=== PATIENT | male | born 1970 | race Caucasian/White ===

== ENCOUNTER 2022-04-07 12:10 | Emergency (ER) | payer OTHER, SELFPAY ==
--- NOTE | ~2022-04-07 | XR_ITS ---
EXAMINATION: XR CHEST CLINICAL INFORMATION: Left-sided chest pain COMPARISON: None TECHNIQUE: Frontal view of the chest was obtained. FINDINGS: No significant abnormality is noted involving the heart, lungs, mediastinum, bony thorax or soft tissues. XR/XR chest 1V IMPRESSION: Unremarkable examination.
--- NOTE | ~2022-04-07 | CT_ITS ---
EXAMINATION: CT HEAD WITHOUT CONTRAST CLINICAL INFORMATION: Paresthesias. COMPARISON: None TECHNIQUE: Contiguous axial imaging was performed from the skull base to vertex without intravenous administration of contrast. Additional 2-D coronal and sagittal reformatted images are generated on the CT workstation and uploaded to PACS. This CT examination was performed using dose optimization techniques as appropriate, variously including the following: *Automated exposure control *Adjustment of mA and/or kV according to patient size (this includes techniques or standardized protocols for targeted exams where dose is matched to indication/reason for exam; i.e. extremities or head) *Use of iterative reconstruction technique DLP: 605 mGy-cm FINDINGS: There is no intracranial hemorrhage, hematoma, or extra-axial fluid collection. The ventricles are normal in size. There is no hydrocephalus, edema, or mass effect. The ryder-white matter differentiation appears well preserved . There is no visible acute territorial infarct or mass lesion. The calvarium appears intact. There is no pneumocephalus or orbital emphysema. The visualized sinuses and middle ears and mastoid air cells show no significant mucosal thickening. There are no air-fluid levels. CT/CT head/brain wo IV con IMPRESSION: Unremarkable noncontrast CT head.
[2022-04-07 12:11] VITALS: BP 133/94; PULSE 80; RESP 20; TEMP 36.6; O2SAT 98; BMI 25.8
--- NOTE | 2022-04-07 12:12 | ED_ITS ---
HPI - Chest Pain General Chief Complaint: Chest Pain <CHICO Garrett Last Filed: 04/07/22 12:15> Stated Complaint: Chest pain/L arm tingling <CHICO Garrett Last Filed: 04/07/22 12:15> Time Seen by Provider: 04/07/22 12:42 <CHICO Garrett Last Filed: 04/07/22 12:15> Source: patient <CHICO Martinez Last Filed: 04/07/22 15:54> Mode of arrival: ambulatory <CHICO Martinez Last Filed: 04/07/22 15:54> Limitations: no limitations <CHICO Martinez Last Filed: 04/07/22 15:54> History of Present Illness HPI narrative: Patient is a 51 year old assigned male at with no reported medical history presenting to the emergency department today with intermittent chest pain and intermittent numbness and tingling to both arms and legs. Patient states that over the last 2 days he has had intermittent chest pain, numbness and tingling intermittently in the upper and lower extremities, and intermittent brain fog. Patient denies any dizziness, lightheadedness, abdominal pain, nausea, vomiting, fever, chills, blurry vision, double vision, loss of vision, difficulty breathing, shortness of breath, back pain, night sweats, pain with urination, increased urinary frequency, increased urinary urgency, blood in his urine or stool, syncope or a near syncopal episode, recent trauma or falls, bowel incontinence, bladder incontinence, bowel retention, bladder retention, or any other complaints at this time. <CHICO Martinez Last Filed: 04/07/22 15:54> Pain radiation: none <CHICO Martinez Last Filed: 04/07/22 15:54> Severity: mild <CHICO Martinez Last Filed: 04/07/22 15:54> Pain scale (0-10): 2 <CHICO Martinez Last Filed: 04/07/22 15:54> Quality: aching <CHICO Martinez Last Filed: 04/07/22 15:54> Relieving factors: nothing <CHICO Martinez Last Filed: 04/07/22 15:54> Exacerbating factors: nothing <CHICO Martinez - Last Filed: 04/07/22 15:54> Treatment prior to arrival: none <CHICO Martinez Last Filed: 04/07/22 15:54> Related Data Allergies/Adverse Reactions: Allergies Allergy/AdvReac Type Severity Reaction Status Date / Time No Known Allergies Allergy Verified 04/07/22 12:16 <CHICO Garrett - Last Filed: 04/07/22 12:15> Review of Systems Constitutional: Constitutional: Reports no additional constitutional com plaints, Denies chills, Denies fever(s) and Denies night sweats <CHICO Martinez Last Filed: 04/07/22 15:54> Eyes: Eyes: Reports no additional eye complaints, Denies blurry vision, Denies change in vision, Denies diplopia, Denies eye discharge, Denies loss of vision and Denies eye pain <CHICO Martinez Last Filed: 04/07/22 15:54> ENT: Denies dizziness <CHICO Martinez Last Filed: 04/07/22 15:54> Cardiovascular: Cardiovascular: Reports no additional cardiovascular complaints, Reports chest pain (intermittently), Denies lightheadedness, Denies Loss of Consciousness and Denies dyspnea <CHICO Martinez Last Filed: 04/07/22 15:54> Respiratory: Respiratory: Reports no additional respiratory complaints and Denies dyspnea <CHICO Martinez Last Filed: 04/07/22 15:54> Gastrointestinal: Gastrointestinal: Reports no additional gastrointestinal complaints, Denies abdominal pain, Denies melena, Denies hematochezia, Denies change in bowel habits and Denies change in stool character <CHICO Martinez Last Filed: 04/07/22 15:54> Genitourinary: Genitourinary: Reports no additional male genitourinary complaints, Denies hematuria, Denies oliguria, Denies difficulty urinating, Denies dysuria, Denies urinary frequency, Denies urinary hesitancy, Denies urinary incontinence and Denies urinary urgency <CHICO Martinez Last Filed: 04/07/22 15:54> Musculoskeletal: Musculoskeletal: Reports no additional musculoskeletal complaints, Reports numbness and Reports tingling <CHICO Martinez - Last Filed: 04/07/22 15:54> Neurologic: Denies dizziness, Denies loss of vision, Reports numbness and Reports tingling <CHICO Martinez - Last Filed: 04/07/22 15:54> Comments: intermittent numbness and tingling to bilateral upper and lower extremities <CHCIO Martinez - Last Filed: 04/07/22 15:54> Psychiatric: Psychiatric: Reports no additional psychiatric complaints <CHICO Martinez - Last Filed: 04/07/22 15:54> Endocrine: Endocrine: Reports no additional endocrine complaints <CHICO Martinez - Last Filed: 04/07/22 15:54> Hematologic/Lymphatic: Hematologic/Lymphatic: Reports no additional hematologic/lymphatic complaints <CHICO Martinez - Last Filed: 04/07/22 15:54> Allergic/Immunologic: Allergic/Immunologic: Reports no additional allergic/immunologic complaints <CHICO Martinez - Last Filed: 04/07/22 15:54> [facility] Past Medical History Attestation statement: The following information was validated with the patient. <CHICO Martinez - Last Filed: 04/07/22 15:54> Source: old records reviewed and nursing notes reviewed <CHICO Martinez - Last Filed: 04/07/22 15:54> Social History Social History: Social History Smoked in Last 30 Days: No Substance Use Type: Marijuana Advance Directives: No Advance Directives Information Provided: Yes <CHICO Garrett - Last Filed: 04/07/22 12:15> Physical Exam Vital Signs: Vital Signs: Last Vital Signs Temp 98.2 F 04/07/22 15:14 Pulse 70 04/07/22 15:14 Resp 18 04/07/22 15:14 BP 136/87 04/07/22 15:14 Pulse Ox 96 04/07/22 15:14 O2 Del Method 04/07/22 15:14 BMI result Body Mass Index 25.8 <CHICO Garrett - Last Filed: 04/07/22 12:15> Vital Signs: Last Vital Signs Temp 98.2 F 04/07/22 15:14 Pulse 70 04/07/22 15:14 Resp 18 04/07/22 15:14 BP 136/87 04/07/22 15:14 Pulse Ox 96 04/07/22 15:14 O2 Del Method 04/07/22 15:14 BMI result Body Mass Index 25.8 <CHICO Martinez - Last Filed: 04/07/22 15:54> Const: General: cooperative, no acute distress, alert and awake <CHICO Martinez - Last Filed: 04/07/22 15:54> Nutritional Appearance: well nourished <Jaimee Kuo PA - Last Filed: 04/07/22 15:54> Orientation/consciousness: patient oriented x3 <CHICO Martinez - Last Filed: 04/07/22 15:54> Limitations: no limitations <CHICO Martinez - Last Filed: 04/07/22 15:54> HEENT: Head: Yes normal to inspection and Yes atraumatic <CHICO Martinez - Last Filed: 04/07/22 15:54> Ears: hearing grossly normal bilaterally and external ears normal <Jaimee Kuo PA - Last Filed: 04/07/22 15:54> General nose exam: Normal external nose present, no nasal discharge noted and no epistaxis <CHICO Martinez - Last Filed: 04/07/22 15:54> Face and sinus: Yes normal facial exam, No abrasion and No laceration <CHICO Martinez - Last Filed: 04/07/22 15:54> Mouth: Normal oral and palatal mucosa present, no drooling and no muffled voice <Jaimee Kuo PA - Last Filed: 04/07/22 15:54> Eyes: General: appearance normal, both eyes and all related structures <CHICO Martinez - Last Filed: 04/07/22 15:54> Periorbital: periorbital findings normal <CHICO Martinez - Last Filed: 04/07/22 15:54> Eyelids: Yes eyelids normal <CHICO Martinez - Last Filed: 04/07/22 15:54> Conjunctivae: conjunctivae normal <CHICO Martinez - Last Filed: 04/07/22 15:54> Pupils: Equal, round and reactive pupils present <Jaimee Kuo PA - Last Filed: 04/07/22 15:54> EOM: EOMs intact bilaterally <Jaimee Kuo PA - Last Filed: 04/07/22 15:54> Neck: Neck: Yes normal visual inspection, Yes full ROM and Yes no lymphadenopathy <Jaimee Kuo PA - Last Filed: 04/07/22 15:54> Chest: Chest palpation & inspection: normal inspection of the chest <Jaimee Kuo PA - Last Filed: 04/07/22 15:54> Resp: Effort & Inspection: normal respiratory effort and able to speak in complete sentences <Jaimee Kuo PA - Last Filed: 04/07/22 15:54> Auscultation: clear to auscultation bilaterally <Jaimee Kuo PA - Last Filed: 04/07/22 15:54> Cardio: Rate: regular rate <Jaimee Kuo PA - Last Filed: 04/07/22 15:54> Rhythm: regular rhythm <Jaimee Kuo PA - Last Filed: 04/07/22 15:54> GI: Inspection: Yes normal to inspection <Jaimee Kuo AK - Last Filed: 04/07/22 15:54> Palpation (GI): Soft to palpation, not firm, nontender, no guarding and not rigid <Jaimee Kuo PA - Last Filed: 04/07/22 15:54> Neuro: General: patient oriented x3 and moves all extremities <Jaimee Yanezmichelle PA - Last Filed: 04/07/22 15:54> Cranial nerves: Yes Equal, round and reactive pupils present <Jaimee Kuo PA - Last Filed: 04/07/22 15:54> Cognition (Neuro): normal cognition <Jaimee Yanezmichelle PA - Last Filed: 04/07/22 15:54> Motor exam (neuro): 5/5 motor strength present throughout <Jaimee Kuo PA - Last Filed: 04/07/22 15:54> Sensory Exam: Normal double simultaneous stimulation for sensation <Jaimee Yanezmichelle PA - Last Filed: 04/07/22 15:54> Coordination: onheld-jk-ksts test normal <Jaimee YanezCHICO martinez - Last Filed: 04/07/22 15:54> Extrem: General: Yes normal to inspection, Yes full ROM and Yes capillary refill normal <Jaimeebharat YanezCHICO martinez - Last Filed: 04/07/22 15:54> Psych: Appearance: grossly normal <Jaimee YanezCHICO martinez - Last Filed: 04/07/22 15:54> Mental Status: mental status grossly normal <Jaimee KuoCHICO martinez - Last Filed: 04/07/22 15:54> Affect: normal affect <Jaimeebharat YanezCHICO martinez - Last Filed: 04/07/22 15:54> Attitude: cooperative <Jaimee KuoCHICO martinez - Last Filed: 04/07/22 15:54> Thought process: Normal thought process present <CHICO Martinez - Last Filed: 04/07/22 15:54> Thought content: Normal thought content present <Jaimee KuoCHICO martinez - Last Filed: 04/07/22 15:54> Insight: Good insight present (Psych) <CHICO Martinez - Last Filed: 04/07/22 15:54> Course Course Course Narrative: RME - 51 yo male presenting with intermittent left sided chest pains that started a few days ago. Sometimes radiates further into left chest or down the left arm as pain or as tingling sensation. At times down the left leg as well. Some SOB associated along with brain fog, trouble concentrating. Family hx cardiac disease but he has no other risk factors. VSS and he appears well in triage. Labs, CXR, EKG ordered. <CHICO Garrett - Last Filed: 04/07/22 12:15> Medical Decision Making Medical Decision Making MDM Narrative: Patient is a 51 year old assigned male at with no reported medical history presenting to the emergency department today with intermittent chest pain and diffuse paresthesias. Patient's physical exam was unremarkable. Patient's blood work was unremarkable. Patient's EKG was unremarkable. Patient's chest x-ray and head CT showed no acute process. I explained my physical exam findings as well as all test results to the patient. I answered all questions asked by the patient. I stressed the importance of the patient taking his medication as prescribed. I stressed the importance of the patient following up with his primary care provider, a provider engagement executive, and a neurologist. I stressed the importance of the patient returning to the emergency department immediately if his symptoms were to worsen or if he were to develop any dizziness, shortness of breath, difficulty breathing, chest pain, blurry vision, loss of vision, nausea, vomiting, abdominal pain, fever, chills, back pain, or any other complaints. Patient verbalized agreement and understanding with this treatment plan and discharge. <CHICO Martinez - Last Filed: 04/07/22 15:54> Differential Diagnosis Differential Diagnoses: The differential diagnosis associated with the presentation includes <CHICO Martinez - Last Filed: 04/07/22 15:54> Chest pain, paresthesias <CHICO Martinez - Last Filed: 04/07/22 15:54> Lab Data MDM Lab Attestation statement: I reviewed the patient's lab results. <CHICO Martinez - Last Filed: 04/07/22 15:54> Result Diagrams: 04/07/22 12:28 04/07/22 12:28 <CHICO Garrett - Last Filed: 04/07/22 12:15> Labs: Lab Results 04/07/22 04/07/22 04/07/22 Range/Units 12:28 12:28 12:28 WBC 6.3 (4.8-10.8) X10*3/uL RBC 5.13 (4.60-5.80) X10*6/uL Hgb 15.8 (14.0-18.0) g/dl Hct 46.9 (42.0-52.0) % MCV 91.4 (80.0-98.0) fL MCH 30.8 (27.0-33.0) pg MCHC 33.7 (31.0-36.0) g/dl RDW 12.3 (11.0-16.0) % Plt Count 312 (160-400) X10*3/uL MPV 9.2 L (9.4-12.4) fL Immature Gran % (Auto) 0.2 (0.0-0.4) % Neut % (Auto) 60.8 (45-73) % Lymph % (Auto) 28.8 (20-40) % [place] % (Auto) 7.2 (2-11) % Eos % (Auto) 1.6 (0-4) % Baso % (Auto) 1.4 (0-2) % Lymph # (Auto) 1.8 (1.2-4.9) X10*3/uL [place] # (Auto) 0.5 (0.1-1.2) X10*3/uL Eos # (Auto) 0.1 (0.0-0.4) X10*3/uL Baso # (Auto) 0.1 (0.0-0.2) X10*3/uL Abs Immat Gran (auto) 0.01 (0.00-0.03) X10*3/uL Absolute Neuts (auto) 3.8 (2.0-8.3) x10*3/uL Absolute Nucleated RBC 0.000 (0.0-0.012) X10*3/uL Nucleated RBC % (auto) 0.0 (0.0-0.2) /100WBC PT 11.2 (10.0-13.1) SEC INR 1.0 (0.9-1.1) APTT 31.5 (26.0-36.4) SEC Sodium 138 (135-145) mmol/L Potassium 4.5 (3.3-5.1) mmol/L Chloride 102 (96-108) mmol/L Carbon Dioxide 29 (22-29) mmol/L Anion Gap 12 (12-20) BUN 18 H (9-16) mg/dL Creatinine 1.29 (0.5-1.4) mg/dL Estim Creat Clear Calc 68.5 Estimated GFR 59 Random Glucose 98 (60-115) mg/dL Calcium 9.8 (8.4-10.2) mg/dL Magnesium 2.1 (1.6-2.6) mg/dL Total Bilirubin 0.5 (0.0-1.0) mg/dL Direct Bilirubin < 0.2 (0.0-0.5) mg/dL AST 20 (5-37) U/L ALT 14 (0-40) U/L Alkaline Phosphatase 71 (39-117) U/L Troponin I High Sens (<3.5-35.0) ng/L Total Protein 7.3 (6.5-8.0) g/dL Albumin 4.4 (3.5-5.0) g/dL 04/07/22 Range/Units 12:28 WBC (4.8-10.8) X10*3/uL RBC (4.60-5.80) X10*6/uL Hgb (14.0-18.0) g/dl Hct (42.0-52.0) % MCV (80.0-98.0) fL MCH (27.0-33.0) pg MCHC (31.0-36.0) g/dl RDW (11.0-16.0) % Plt Count (160-400) X10*3/uL MPV (9.4-12.4) fL Immature Gran % (Auto) (0.0-0.4) % Neut % (Auto) (45-73) % Lymph % (Auto) (20-40) % [place] % (Auto) (2-11) % Eos % (Auto) (0-4) % Baso % (Auto) (0-2) % Lymph # (Auto) (1.2-4.9) X10*3/uL [place] # (Auto) (0.1-1.2) X10*3/uL Eos # (Auto) (0.0-0.4) X10*3/uL Baso # (Auto) (0.0-0.2) X10*3/uL Abs Immat Gran (auto) (0.00-0.03) X10*3/uL Absolute Neuts (auto) (2.0-8.3) x10*3/uL Absolute Nucleated RBC (0.0-0.012) X10*3/uL Nucleated RBC % (auto) (0.0-0.2) /100WBC PT (10.0-13.1) SEC INR (0.9-1.1) APTT (26.0-36.4) SEC Sodium (135-145) mmol/L Potassium (3.3-5.1) mmol/L Chloride (96-108) mmol/L Carbon Dioxide (22-29) mmol/L Anion Gap (12-20) BUN (9-16) mg/dL Creatinine (0.5-1.4) mg/dL Estim Creat Clear Calc Estimated GFR Random Glucose (60-115) mg/dL Calcium (8.4-10.2) mg/dL Magnesium (1.6-2.6) mg/dL Total Bilirubin (0.0-1.0) mg/dL Direct Bilirubin (0.0-0.5) mg/dL AST (5-37) U/L ALT (0-40) U/L Alkaline Phosphatase (39-117) U/L Troponin I High Sens < 3.5 (<3.5-35.0) ng/L Total Protein (6.5-8.0) g/dL Albumin (3.5-5.0) g/dL <CHICO Garrett - Last Filed: 04/07/22 12:15> Lab Results 04/07/22 04/07/22 04/07/22 Range/Units 12:28 12:28 12:28 WBC 6.3 (4.8-10.8) X10*3/uL RBC 5.13 (4.60-5.80) X10*6/uL Hgb 15.8 (14.0-18.0) g/dl Hct 46.9 (42.0-52.0) % MCV 91.4 (80.0-98.0) fL MCH 30.8 (27.0-33.0) pg MCHC 33.7 (31.0-36.0) g/dl RDW 12.3 (11.0-16.0) % Plt Count 312 (160-400) X10*3/uL MPV 9.2 L (9.4-12.4) fL Immature Gran % (Auto) 0.2 (0.0-0.4) % Neut % (Auto) 60.8 (45-73) % Lymph % (Auto) 28.8 (20-40) % [place] % (Auto) 7.2 (2-11) % Eos % (Auto) 1.6 (0-4) % Baso % (Auto) 1.4 (0-2) % Lymph # (Auto) 1.8 (1.2-4.9) X10*3/uL [place] # (Auto) 0.5 (0.1-1.2) X10*3/uL Eos # (Auto) 0.1 (0.0-0.4) X10*3/uL Baso # (Auto) 0.1 (0.0-0.2) X10*3/uL Abs Immat Gran (auto) 0.01 (0.00-0.03) X10*3/uL Absolute Neuts (auto) 3.8 (2.0-8.3) x10*3/uL Absolute Nucleated RBC 0.000 (0.0-0.012) X10*3/uL Nucleated RBC % (auto) 0.0 (0.0-0.2) /100WBC PT 11.2 (10.0-13.1) SEC INR 1.0 (0.9-1.1) APTT 31.5 (26.0-36.4) SEC Sodium 138 (135-145) mmol/L Potassium 4.5 (3.3-5.1) mmol/L Chloride 102 (96-108) mmol/L Carbon Dioxide 29 (22-29) mmol/L Anion Gap 12 (12-20) BUN 18 H (9-16) mg/dL Creatinine 1.29 (0.5-1.4) mg/dL Estim Creat Clear Calc 68.5 Estimated GFR 59 Random Glucose 98 (60-115) mg/dL Calcium 9.8 (8.4-10.2) mg/dL Magnesium 2.1 (1.6-2.6) mg/dL Total Bilirubin 0.5 (0.0-1.0) mg/dL Direct Bilirubin < 0.2 (0.0-0.5) mg/dL AST 20 (5-37) U/L ALT 14 (0-40) U/L Alkaline Phosphatase 71 (39-117) U/L Troponin I High Sens (<3.5-35.0) ng/L Total Protein 7.3 (6.5-8.0) g/dL Albumin 4.4 (3.5-5.0) g/dL 04/07/22 Range/Units 12:28 WBC (4.8-10.8) X10*3/uL RBC (4.60-5.80) X10*6/uL Hgb (14.0-18.0) g/dl Hct (42.0-52.0) % MCV (80.0-98.0) fL MCH (27.0-33.0) pg MCHC (31.0-36.0) g/dl RDW (11.0-16.0) % Plt Count (160-400) X10*3/uL MPV (9.4-12.4) fL Immature Gran % (Auto) (0.0-0.4) % Neut % (Auto) (45-73) % Lymph % (Auto) (20-40) % [place] % (Auto) (2-11) % Eos % (Auto) (0-4) % Baso % (Auto) (0-2) % Lymph # (Auto) (1.2-4.9) X10*3/uL [place] # (Auto) (0.1-1.2) X10*3/uL Eos # (Auto) (0.0-0.4) X10*3/uL Baso # (Auto) (0.0-0.2) X10*3/uL Abs Immat Gran (auto) (0.00-0.03) X10*3/uL Absolute Neuts (auto) (2.0-8.3) x10*3/uL Absolute Nucleated RBC (0.0-0.012) X10*3/uL Nucleated RBC % (auto) (0.0-0.2) /100WBC PT (10.0-13.1) SEC INR (0.9-1.1) APTT (26.0-36.4) SEC Sodium (135-145) mmol/L Potassium (3.3-5.1) mmol/L Chloride (96-108) mmol/L Carbon Dioxide (22-29) mmol/L Anion Gap (12-20) BUN (9-16) mg/dL Creatinine (0.5-1.4) mg/dL Estim Creat Clear Calc Estimated GFR Random Glucose (60-115) mg/dL Calcium (8.4-10.2) mg/dL Magnesium (1.6-2.6) mg/dL Total Bilirubin (0.0-1.0) mg/dL Direct Bilirubin (0.0-0.5) mg/dL AST (5-37) U/L ALT (0-40) U/L Alkaline Phosphatase (39-117) U/L Troponin I High Sens < 3.5 (<3.5-35.0) ng/L Total Protein (6.5-8.0) g/dL Albumin (3.5-5.0) g/dL <CHICO Martinez Filed: 04/07/22 15:54> Independent Interpretation I performed an independent interpretation of an: EKG <CHICO Martinez Filed: 04/07/22 15:54> Interpretation: Vent. Rate: 074 BPM ? ? Atrial Rate: 074 BPM P-R Int: 166 ms? QRS Dur: 092 ms QT Int: 362 ms ? ? ? P-R-T Axes: 064 072 035 degrees QTc Int: 401 ms ? Normal sinus rhythm Normal ECG No previous ECGs available DD/ 1220 <CHICO Martinez Filed: 04/07/22 15:54> Radiology Impression Discussion of test interpretation with radiology: I have reviewed the radiologist's reading. <CHICO Martinez Filed: 04/07/22 15:54> Radiologist Impression: My interpretation is in agreement with the radiologist's impression of these imaging studies. EXAMINATION: CT HEAD WITHOUT CONTRAST CLINICAL INFORMATION: Paresthesias. ? COMPARISON: None TECHNIQUE: Contiguous axial imaging was performed from the skull base to vertex without intravenous administration of contrast.? Additional 2-D coronal and sagittal reformatted images are generated on the CT workstation and uploaded to PACS. This CT examination was performed using dose optimization techniques as appropriate, variously including the following: *Automated exposure control *Adjustment of mA and/or kV according to patient size (this includes techniques or standardized protocols for targeted exams where dose is matched to indication/reason for exam; i.e. extremities or head) *Use of iterative reconstruction technique DLP: 605 mGy-cm FINDINGS: There is no intracranial hemorrhage, hematoma, or extra-axial fluid collection.? The ventricles are normal in size. There is no hydrocephalus, edema, or mass effect.? The ryder-white matter differentiation appears well preserved . There is no visible acute territorial infarct or mass lesion. The calvarium appears intact. There is no pneumocephalus or orbital emphysema.? The visualized sinuses and middle ears and mastoid air cells show no significant mucosal thickening. There are no air-fluid levels. CT/CT head/brain wo IV con IMPRESSION: Unremarkable noncontrast CT head. Dictated By: Luis Alberto Rosario MD Signed By: Electronically signed by Luis Alberto Rosario MD 04/07/22 1516 --------- EXAMINATION: XR CHEST CLINICAL INFORMATION: Left-sided chest pain COMPARISON: None TECHNIQUE: Frontal view of the chest was obtained. FINDINGS: No significant abnormality is noted involving the heart, lungs, mediastinum, bony thorax or soft tissues. XR/XR chest 1V IMPRESSION: Unremarkable examination. Dictated By: Lewis Gaitan MD Signed By: Electronically signed by Lewis Gaitan MD 04/07/22 1446 <CHICO Martinez - Last Filed: 04/07/22 15:54> Discharge Plan Discharge Clinical Impression: Paresthesia, Chest pain <CHICO Garrett - Last Filed: 04/07/22 12:15> Patient Disposition: Home, Self-Care <CHICO Garrett - Last Filed: 04/07/22 12:15> Instructions: Chest Pain (DC), Paresthesia (ED) <CHICO Garrett - Last Filed: 04/07/22 12:15> Additional Instructions: Follow up with your primary care provider, a provider engagement executive, and a neurologist. Return to the emergency department immediately if your symptoms worsen or if you develop any dizziness, shortness of breath, difficulty breathing, chest pain, blurry vision, loss of vision, nausea, vomiting, abdominal pain, fever, chills, back pain, or any other complaints. <CHICO Garrett - Last Filed: 04/07/22 12:15> Referrals: [facility] [place] Cardiovascular Services [Provider Group] (Call to establish and follow up with a provider engagement executive.) [facility] [place] Neuro/Sleep [Provider Group] (Call to establish and follow up with a neurologist. ) Stiven Murray MD [Primary Care Provider] - <CHICO Garrett - Last Filed: 04/07/22 12:15> Interventions: ED Discharge Assessment Last Done: 04/07/22 15:37 <CHICO Garrett - Last Filed: 04/07/22 12:15> Discharge Date/Time: 04/07/22 15:37 <CHICO Garrett - Last Filed: 04/07/22 12:15> Print Language: Russian <CHICO Garrett - Last Filed: 04/07/22 12:15>
--- NOTE | 2022-04-07 12:16 | ECG_ITS ---
Test Reason : CHEST PAIN Blood Pressure : / mmHG Vent. Rate : 074 BPM Atrial Rate : 074 BPM P-R Int : 166 ms QRS Dur : 092 ms QT Int : 362 ms P-R-T Axes : 064 072 035 degrees QTc Int : 401 ms Normal sinus rhythm Normal ECG No previous ECGs available Referred By: Anahi Rubin Electronically Signed By:David Mcguire
[2022-04-07 12:46] VITALS: BP 149/86; PULSE 72; RESP 20; O2SAT 96
[2022-04-07 12:47] LABS: MANUAL DIFF FLAG NO
[2022-04-07 12:53] LABS: Basophils Absolute Auto 0.1 X10*3/uL (0.0-0.2); Basophils Percent Auto 1.4 % (0-2); Eosinophils Absolute Auto 0.1 X10*3/uL (0.0-0.4); Eosinophils Percent Auto 1.6 % (0-4); Hematocrit 46.9 % (42.0-52.0); Hemoglobin 15.8 g/dl (14.0-18.0); Imm Gran Abs Auto 0.01 X10*3/uL (0.00-0.03); Imm Gran Pct Auto 0.2 % (0.0-0.4); Lymphocytes Absolute Auto 1.8 X10*3/uL (1.2-4.9); Lymphocytes Percent Auto 28.8 % (20-40); Mean Corpuscular HGB Conc 33.7 g/dl (31.0-36.0); Mean Corpuscular Hemoglobin 30.8 pg (27.0-33.0); Mean Corpuscular Volume 91.4 fL (80.0-98.0); Mean Platelet Volume 9.2 fL (9.4-12.4); Monocytes Absolute Auto 0.5 X10*3/uL (0.1-1.2); Monocytes Percent Auto 7.2 % (2-11); Neutrophils Absolute Auto 3.8 x10*3/uL (2.0-8.3); Neutrophils Percent Auto 60.8 % (45-73); Platelet Count 312 X10*3/uL (160-400); Red Blood Count 5.13 X10*6/uL (4.60-5.80); Red Cell Distribution Width 12.3 % (11.0-16.0); White Blood Count 6.3 X10*3/uL (4.8-10.8)
[2022-04-07 12:56] LABS: Prothrombin Time 11.2 SEC (10.0-13.1)
[2022-04-07 12:59] LABS: Partial Thromboplastin Time 31.5 SEC (26.0-36.4)
[2022-04-07 13:10] LABS: Alanine Aminotransferase 14 U/L (0-40); Albumin Level 4.4 g/dL (3.5-5.0); Alkaline Phosphatase 71 U/L (39-117); Anion Gap 12 (12-20); Aspartate Amino Transferase 20 U/L (5-37); Bilirubin Direct < 0.2 mg/dL (0.0-0.5); Bilirubin Total 0.5 mg/dL (0.0-1.0); Blood Urea Nitrogen 18 mg/dL (9-16); Calcium 9.8 mg/dL (8.4-10.2); Carbon Dioxide 29 mmol/L (22-29); Chloride 102 mmol/L (96-108); Creatinine Clr Calc Pharmacy 68.5; Estimated Glomerular Filt Rate 59; Glucose Random 98 mg/dL (60-115); Magnesium 2.1 mg/dL (1.6-2.6); Potassium 4.5 mmol/L (3.3-5.1); Sodium 138 mmol/L (135-145); Total Protein 7.3 g/dL (6.5-8.0)
[2022-04-07 13:12] LABS: Troponin-I High Sensitivity < 3.5 ng/L (<3.5-35.0)
[2022-04-07 15:14] VITALS: BP 136/87; PULSE 70; RESP 18; TEMP 36.8; O2SAT 96
[2022-04-08 22:29] LABS: A. Phagocytphilium DNA,RT-PCR NOT DETECTED (NOT DETECTED); Babesia Microti DNA, RT-PCR NOT DETECTED (NOT DETECTED); Borrelia Miyamotoi,DNA RT-PCR NOT DETECTED (NOT DETECTED); E.Chaffeensis DNA RT-PCR NOT DETECTED (NOT DETECTED); Lyme(Borrelia ssp)DNA RT-PCR NOT DETECTED (NOT DETECTED)
== END 2022-04-07 15:37 | disposition home or self-care (01) ==
PROVIDERS: Physician Assistant; Physician Assistant Medical; Emergency Provider Student in an Organized Health Care Education/Training Program; PCP Family Medicine
DX: R07.9 Chest pain, unspecified (principal); R20.2 Paresthesia of skin; F12.90 Cannabis use, unspecified, uncomplicated
CPT/HCPCS: 36415; 70450; 71045; 80048; 80076; 83735; 84484; 85025; 85610; 85730; 87798; 87801; 93005; 99284; 99285